=== PATIENT | male | born 1960 | race Caucasian/White ===

== ENCOUNTER 2018-09-09 08:13 | Day surgery (SDC) | payer OTHER ==
[2018-09-09] MEDS ORDERED: ceFAZolin 2 GM/DEXTROSE 100 ML IV ONE (08:34)
[2018-09-09] MEDS ORDERED: LR 1,000 ML IV ONE (08:36)
--- NOTE | 2018-09-09 09:17 | PDHPUP ---
History & Physical Update H&P update statement: This history and physical update is based on an assessment of the patient which was completed after admission or registration (within 24 hours), but prior to the surgery/procedure. H&P update: H&P reviewed & patient examined, no change in patient's condition since H&P completed
[2018-09-09] MEDS ORDERED: BUPIVACAINE 0.5% 30 ML SDV ONE (09:53)
[2018-09-09] MEDS ORDERED: MIDAZOLAM 2 MG/2 ML VIAL IVP ONE (10:44)
--- NOTE | 2018-09-09 10:44 | PDANEPAE ---
ANE History of Present Illness malignant melanoma ANE Past Medical History - Cardiovascular History Hx Hypertension: No Hx Arrhythmias: No Hx Chest Pain: No Hx Coronary Artery / Peripheral Vascular Disease: No Hx CHF / Valvular Disease: No Hx Palpitations: No - Pulmonary History Hx COPD: No Hx Asthma/Reactive Airway Disease: No Hx Recent Upper Respiratory Infection: No Hx Oxygen in Use at Home: No Hx Sleep Apnea: No Sleep Apnea Screening Result - Last Documented: Negative - Neurologic History Hx Cerebrovascular Accident: No Hx Seizures: No Hx Dementia: No - Endocrine History Hx Diabetes: No Hypothyroid: No Hyperthyroid: No Obesity: mild - Renal History Hx Renal Disorders: No - Liver History Hx Hepatic Disorders: No - Neurological & Psychiatric Hx Hx Neurological and Psychiatric Disorders: No - Cancer History Hx Cancer: No - Congenital Disorder History Hx Congenital Disorders: No - GI History GERD: no Hx Gastrointestinal Disorders: No - Other Health History Other Health History: wears glasses - Chronic Pain History Chronic Pain: No - Surgical History Prior Surgeries: colonoscopy ANE Review of Systems Review of systems is: negative Review of Systems: - Exercise capacity Exercise capacity: >=4 METS METS (RN): 4 METS ANE Patient History - Allergies Allergies/Adverse Reactions: No Known Allergies Allergy (Verified 09/08/18 12:00) - Home Medications Home medications: none - NPO status NPO Status: no food or drink >8 hours NPO Since - Liquids (Date): 09/08/18 NPO Since - Liquids (Time): 20:00 NPO Since - Solids (Date): 09/08/18 NPO Since - Solids (Time): 20:00 - Smoking Hx Smoking Status: Current some day smoker - Family Anes Hx Family Hx Anesthesia Complications: none ANE Labs/Vital Signs - Vital Signs Vital Signs: reviewed preoperatively; see RN documention for details Blood Pressure: 114/87 Heart Rate: 67 Respiratory Rate: 16 O2 Sat (%): 96 Height: 177.8 cm Weight: 99.79 kg ANE Physical Exam - Airway Neck exam: FROM Mallampati Score: Class 2 Mouth exam: normal dental/mouth exam - Pulmonary Pulmonary: no respiratory distress - Cardiovascular Cardiovascular: regular rate and rhythym - ASA Status ASA Status: II ANE Anesthesia Plan Anesthesia Plan: general endotracheal anesthesia
[2018-09-09] MEDS ORDERED: CEFAZOLIN 2 GM/DEXTROSE/100 ML BAG IV ONE (11:10)
[2018-09-09] MEDS ORDERED: PROPOFOL 200 MG/20 ML VIAL ONE (11:22)
[2018-09-09] MEDS ORDERED: fentaNYL 100 MCG/2 ML INJ ONE ×2 (11:22→12:24)
[2018-09-09] MEDS ORDERED: ROCURONIUM 50 MG/5 ML VIAL ONE (11:23)
[2018-09-09] MEDS ORDERED: KETOROLAC 30 MG/1 ML SDV ONE (11:38)
[2018-09-09] MEDS ORDERED: ONDANSETRON 4 MG/2 ML VIAL ONE (11:38)
[2018-09-09] MEDS ORDERED: DEXAMETHASONE 4 MG/ML VIAL ONE ×2 (11:38)
[2018-09-09] MEDS ORDERED: LIDOCAINE 2% 2 ML INJ ONE ×2 (11:38)
[2018-09-09] MEDS ORDERED: ePHEDrine SULFATE 25 MG/5 ML SYR ONE (13:37)
[2018-09-09] MEDS ORDERED: fentaNYL 100 MCG/2 ML INJ IVP PRN ×2 (13:56→14:12)
[2018-09-09] MEDS ORDERED: ACETAMINOPHEN 500 MG TAB PO PRN ×2 (13:56→14:12)
[2018-09-09] MEDS ORDERED: PROMETHAZINE HCL 25 MG/ML INJ IVP PRN ×2 (13:56→14:12)
[2018-09-09] MEDS ORDERED: MEPERIDINE 25 MG/0.5 ML AMP IVP PRN ×2 (13:56→14:12)
[2018-09-09] MEDS ORDERED: DEXAMETHASONE 4 MG/ML VIAL IVP PRN ×2 (13:56→14:12)
[2018-09-09] MEDS ORDERED: ALBUTEROL 3 ML DEYVIAL IH PRN ×2 (13:56→14:12)
[2018-09-09] MEDS ORDERED: NALOXONE HCL 0.4 MG/ML INJ IVP PRN ×2 (13:56→14:12)
[2018-09-09] MEDS ORDERED: ONDANSETRON 4 MG/2 ML VIAL IVP PRN ×2 (13:56→14:12)
[2018-09-09] MEDS ORDERED: LABETALOL HCL 5 MG/ML 20 ML MDV IVP PRN ×2 (13:56→14:12)
[2018-09-09] MEDS ORDERED: LR 500 ML IV PRN ×2 (13:56→14:12)
[2018-09-09] MEDS ORDERED: HYDROmorphONE/DILAUDID 1 MG/ML INJ IVP PRN ×2 (13:56→14:12)
[2018-09-09] MEDS ORDERED: oxyCODONE IR 5 MG TAB PO PRN ×2 (13:56→14:12)
[2018-09-09] MEDS ORDERED: METOCLOPRAMIDE 10 MG/2 ML VIAL IVP PRN ×2 (13:56→14:12)
--- NOTE | 2018-09-09 13:59 | POSTOPPROG ---
Post Op Note Date of Operation: 09/09/18 Surgeon: Tere Elias Marine Structural Designer: annette Anesthesiologist: aure Anesthesia: GET(General Endotracheal) Pre-op Diagnosis: melanoma x 3 Post-op Diagnosis: same Indication: 57yo M with melanoma x 3 of back Procedure: WLE melanoma x 3, B axillary SLN biopsy Findings: [place] node bilateral axilla, none unusual Inf/Abcess present in the surg proc area at time of surgery?: No EBL: Minimal Complications: none immediately post-op Bowel Protocol: N/A Clean Closure Performed: N/A Drains: Sixto Johnson (R back) Specimen(s): Wide local excision x [address] L axillary LN
[2018-09-09] MEDS ORDERED: PHENYLEPHRINE HCL 100 MCG/ML SYR IVP PRN (14:12)
[2018-09-09 17:14] VITALS: BP 112/73
--- NOTE | 2018-09-12 12:10 | GOP ---
[f rep st] OPERATIVE REPORT DATE OF OPERATION: 09/09/2018 SURGEON: Tere Elias MD SCIENTIFIC ADVISOR: RASHEEDA Busby. ANESTHESIA: General. ANESTHESIOLOGIST: Ovi Fields MD. PREOPERATIVE DIAGNOSIS: Malignant melanoma x3. POSTOPERATIVE DIAGNOSIS: Malignant melanoma x3. PROCEDURE PERFORMED: Wide local excision of malignant melanoma, left lateral back/arm, 4 x 3 cm; exc ision melanoma left superior back, 2 x 1 cm. Excision 3 right lateral back/flank, 6 x 4 cm bilateral sentinel lymph node biopsies. FINDINGS: [place] nodes with bilateral axillary uptake. SPECIMENS: As above. ESTIMATED BLOOD LOSS: Less than 20 mL. INDICATIONS: The patient is a 57-year-old man who has recently had 8 biopsies performed. Three show ed melanoma. The largest was on his right back/flank requiring sentinel lymph node. DESCRIPTION OF PROCEDURE: The patient was brought into the operating room, placed supine on the tabl e and general anesthesia was administered. He was then placed in the prone position. All bony promi nences padded. His back was prepped in Betadine and draped in the usual sterile fashion. I made 1 c m margins around the lesion on the left lateral back/arm. I made 2 mm margins around the incision on his left superior back and I made 2 cm margins around the area on the right lateral back/flank. I d issected each of these down to the level of the fascia. They were each marked short superior, long l ateral. Hemostasis is achieved in each wound. The incision on the left lateral back/arm and left schafer perior back deep layer closed with 3-0 Vicryl. Skin closed with 0 Vicryl followed by 4-0 Monocryl. Reinforcement sutures and nylon placed. On the right lateral back, I dissected down to the level of the fascia. Hemostasis achieved. I placed a 15 round silicone drain, which was sutured in place wit h 3-0 nylon. I also placed a deep layer of 3-0 Vicryl. Skin closed was closed with 3-0 nylon. Ster ile dressings applied. He was then turned and placed in the supine position. His bilateral axillae were prepped and draped in the usual sterile fashion. I started on the right axilla. I deepened my dissection down through the skin, subcutaneous tissue and broke into the axillary space. I used the gamma probe to identify the sentinel lymph node. It was extremely hot. I submitted this to Patholog y for permanent. The background was quiet. No additional nodes were noted. Hemostasis achieved. W ound closed with 3-0 Vicryl, followed by 4-0 Monocryl. Mastisol, Steri-Strips and sterile dressings applied. On the left axilla, I dissected down through the skin and subcutaneous tissue. This lymph node was much smaller and a bit more difficult to find. I broke into the axillary space with hemosta ts and took a considerable amount of time to find the small lymph node. However, when I did find it, it was extremely hot and the background was quiet. Hemostasis achieved. Wound closed with 3-0 Vicr yl, followed by 4-0 Monocryl. Mastisol, Steri-Strips and sterile dressings applied. He was awakened in the operating room, extubated and transferred to PACU in stable condition. DRAINS: Sixto-Johnson, right back. /[id number]/MODL
== END 2018-09-09 17:36 | disposition home or self-care (01) ==
LOC: FSGY 08:13
PROVIDERS: ATTEND Surgery
PROC: 07B50ZX Excision of Right Axillary Lymphatic, Open Approach, Diagnostic (ICD-10-PCS; principal; 2018-09-09 12:15)
PROC: 3E0W3KZ Introduction of Other Diagnostic Substance into Lymphatics, Percutaneous Approach (ICD-10-PCS; principal; 2018-09-09 12:15)
DX: C43.59 Malignant melanoma of other part of trunk (principal)
CPT/HCPCS: 11606; 12037; 38525; 78195; A9520; J0690; J1100; J1885; J2250; J2405; J2704; J3010

== ENCOUNTER → 2018-09-15 | Outpatient (CLI) | payer OTHER | LOC: FLAB 14:43 | PROVIDERS: ATTEND Internal Medicine Hematology & Oncology | DX: C43.59 Malignant melanoma of other part of trunk (principal) ==